=== PATIENT | male | born 1955 | race Caucasian/White ===

== ENCOUNTER 2016-09-04 14:00 | Outpatient (CLI) | END 2016-09-04 14:01 | disposition home or self-care (01) | LOC: AMBL 14:00 | PROVIDERS: ATTEND Internal Medicine | DX: R40.4 Transient alteration of awareness (principal); R40.2431 Glasgow coma scale score 3-8, in the field [EMT or ambulance]; R25.1 Tremor, unspecified; E11.9 Type 2 diabetes mellitus without complications; R26.81 Unsteadiness on feet; R00.0 Tachycardia, unspecified; I49.3 Ventricular premature depolarization; C71.9 Malignant neoplasm of brain, unspecified ==